=== PATIENT | male | born 1995 | race Hispanic/Latino ===

== ENCOUNTER 2021-08-08 10:03 | Emergency (ER) | payer OTHER, SELFPAY ==
[2021-08-08] MEDS ORDERED: Ibuprofen 800 MG TAB ONE (11:22)
[2021-08-08] MEDS ORDERED: Ondansetron ODT 4 MG TAB ONE (11:22)
[2021-08-08] MEDS ORDERED: Bacitracin 1 PK ONE (11:22)
[2021-08-08] MEDS ORDERED: Acetaminophen 500 MG TAB ONE (11:22)
== END 2021-08-08 11:40 | disposition home or self-care (01) ==
LOC: MADERS 10:03
DX: S06.0X9A Concussion with loss of consciousness of unspecified duration, initial encounter (principal); S50.812A Abrasion of left forearm, initial encounter; V58.5XXA Driver of pick-up truck or van injured in noncollision transport accident in traffic accident, initial encounter
CPT/HCPCS: 70450; 94760; G0390; Q0162